=== PATIENT | female | born 1960 | race Caucasian/White ===

== ENCOUNTER 2017-11-16 19:59 | Emergency (ER) | payer OTHER ==
[~2017-11-16] VITALS: Ht 167.6 cm; Wt 49.9 kg
[~2017-11-16 19:59] MED LIST: ACET325 PO; ATOR20 PO; Acetaminophen-1 EAC1 PO; B/P MED; BELPTAB PO; CIPRO500 MG PO; CITA20 PO; CYCL10 PO; Coumadin4 MG PO; DIVA250EC PT; DIVA500EC PO; DULO30 PO; ESOM20 PO; FOLI1 PO; GABA300 PT; HYDACE10B PO; LISI20 PO; MIRT15 PO; OMEP20ER PO; Omeprazole20 M1; PHENY100ER PO; PROM25 PO; SENN187 PO; THIA100 PO
[2017-11-16 20:53] LABS: BASOPHILS ABSOLUTE AUTO 0.03 K/mm3 (0.00-0.23); BASOPHILS PERCENT AUTO 0 % (0-2); EOSINOPHILS ABSOLUTE AUTO 0.05 K/mm3 (0.00-0.68); EOSINOPHILS PERCENT AUTO 1 % (0-6); Hematocrit 38.3 % (33.0-51.0); IMMATURE GRAN ABSOLUTE AUTO 0.03 K/mm3 (0.00-0.10); IMMATURE GRAN PERCENT AUTO 0 % (0-1); LYMPHOCYTES ABSOLUTE AUTO 1.75 K/mm3 (0.84-5.20); LYMPHOCYTES PERCENT AUTO 16 % (21-46); MONOCYTES ABSOLUTE AUTO 0.43 K/mm3 (0.16-1.47); MONOCYTES PERCENT AUTO 4 % (4-13); Mean Corpuscular HGB 29.4 pg (26.0-34.0); Mean Corpuscular HGB Conc 31.3 g/dL (31.5-36.5); Mean Corpuscular Volume 94 fL (80-100); Mean Platelet Volume 10.2 fL (9.1-12.4); NEUTROPHILS ABSOLUTE AUTO 8.51 K/mm3 (1.96-9.15); NEUTROPHILS PERCENT AUTO 79 % (41-73); Platelet Count 366 K/mm3 (150-400); RDW Coefficient Variation 15.9 % (11.7-14.2); RDW Standard Deviation 54.5 fL (35.1-46.3); Red Blood Cell Count 4.08 M/mm3 (3.80-5.20)
[2017-11-16 21:14] LABS: Alanine Aminotransfer (ALT/SGP 7 U/L (12-78); Albumin, Blood 3.8 g/dL (3.4-5.0); Albumin/Globulin Ratio 0.7 (0.8-1.8); Alk Phos 85 U/L (50-136); Anion Gap 8 mmol/L (6-16); Aspartate Aminotrans (AST/SGOT 15 U/L (12-37); Bilirubin, Total 0.4 mg/dL (0.1-1.0); Blood Urea Nitrogen 24 mg/dL (8-24); Bun/Creatinine Ratio 50.8 (12.0-20.0); CO2, Blood 36 mmol/L (21-32); Calcium, Blood 9.7 mg/dL (8.5-10.1); Chloride, Blood 92 mmol/L (98-108); Creatinine, Blood 0.47 mg/dL (0.40-1.00); Globulin, Blood 5.5 g/dL (2.2-4.0); Glomerular Filtration Rate >60 (60-); Glucose, Blood 130 mg/dL (70-99); Potassium, Blood 3.1 mmol/L (3.5-5.5); Sodium, Blood 136 mmol/L (136-145); Total Protein, Blood 9.3 g/dL (6.4-8.2)
[2017-11-16 22:27] LABS: Troponin I <0.015 ng/mL (0.000-0.040)
[2017-11-16 22:42] LABS: Bilirubin, Direct 0.1 mg/dL (0.0-0.3); Bilirubin, Indirect 0.3 mg/dL (0.1-0.7)
[2017-11-16 22:48] LABS: International Normalized Ratio 0.99; Prothrombin Time Results 10.3 Sec (9.7-11.5)
[2017-12-31] MEDS ORDERED: Diflucan100 MG PT (13:32)
== END 2017-11-17 00:43 | disposition short-term general hospital (02) ==
LOC: ER 19:59
PROVIDERS: Emergency Medicine
DX: K92.2 Gastrointestinal hemorrhage, unspecified (principal); E87.6 Hypokalemia; Z91.030 Bee allergy status; Z79.899 Other long term (current) drug therapy; G40.909 Epilepsy, unspecified, not intractable, without status epilepticus; F17.210 Nicotine dependence, cigarettes, uncomplicated
CPT/HCPCS: 36415; 74022; 80053; 82248; 83690; 84484; 85025; 85610; 85730; 86850; 86900; 86901; 93005; 93010; 96365; 96367; 96375; 96376; 99285; C9113; J1170; J2405; J7030

== ENCOUNTER → 2017-11-29 | Outpatient (CLI) | payer OTHER ==
[~2017-11-29] MED LIST changes: +ALBU90OI INH; +AZIT200SU PO; +Bactrim Ds Tab1 EACH PT; +CEFD300 PT; +DIPH12.5EL PT; +Diflucan100 MG PT; +FENT50TP TOP; +Flagyl500 MG PT; +GAS RELIEF; +GAVILAX17 GM PT; +GLYC2 PT; +IBUP100S PT; +LEVFLO500 PT; +Methadone10 MG/5 ML PT; +Morphine S10 MG/5 ML PT; +NICO21TP TOP; +ONDA4ODT PO; +OXYC1L PT; +OXYC5 PT; +OXYCODONE10 MG/0.5 PO; +Oxycodone HCl20 M1 PO; +Potassium20 MEQ/11 PO; +RANI150EL PT; +SMZ/TMP; +Tylenol Su160 MG/5 M PT; +VALP250S60 PT; +Xylocaine 2% In20 ML PO
[2017-11-29 15:59] LABS: BASOPHILS ABSOLUTE AUTO 0.01 K/mm3 (0.00-0.23); BASOPHILS PERCENT AUTO 0 % (0-2); EOSINOPHILS ABSOLUTE AUTO 0.06 K/mm3 (0.00-0.68); EOSINOPHILS PERCENT AUTO 1 % (0-6); Hematocrit 29.9 % (33.0-51.0); Hemoglobin 9.8 g/dL (11.5-16.0); IMMATURE GRAN ABSOLUTE AUTO 0.03 K/mm3 (0.00-0.10); IMMATURE GRAN PERCENT AUTO 0 % (0-1); LYMPHOCYTES ABSOLUTE AUTO 1.24 K/mm3 (0.84-5.20); LYMPHOCYTES PERCENT AUTO 10 % (21-46); MONOCYTES ABSOLUTE AUTO 0.65 K/mm3 (0.16-1.47); MONOCYTES PERCENT AUTO 5 % (4-13); Mean Corpuscular HGB 30.5 pg (26.0-34.0); Mean Corpuscular HGB Conc 32.8 g/dL (31.5-36.5); Mean Corpuscular Volume 93 fL (80-100); Mean Platelet Volume 10.2 fL (9.1-12.4); NEUTROPHILS ABSOLUTE AUTO 10.95 K/mm3 (1.96-9.15); NEUTROPHILS PERCENT AUTO 85 % (41-73); Platelet Count 284 K/mm3 (150-400); RDW Coefficient Variation 15.1 % (11.7-14.2); RDW Standard Deviation 51.5 fL (35.1-46.3); Red Blood Cell Count 3.21 M/mm3 (3.80-5.20); White Blood Cell Count 12.94 K/mm3 (4.00-11.30)
[2017-11-29 16:06] LABS: Alanine Aminotransfer (ALT/SGP 9 U/L (12-78); Albumin, Blood 2.9 g/dL (3.4-5.0); Albumin/Globulin Ratio 0.8 (0.8-1.8); Alk Phos 61 U/L (40-126); Anion Gap 8 mmol/L (6-16); Aspartate Aminotrans (AST/SGOT 12 U/L (12-37); Bilirubin, Total 0.2 mg/dL (0.1-1.0); Blood Urea Nitrogen 13 mg/dL (8-24); Bun/Creatinine Ratio 37.1 (12.0-20.0); CO2, Blood 29 mmol/L (21-32); Calcium, Blood 8.9 mg/dL (8.5-10.1); Chloride, Blood 98 mmol/L (98-108); Creatinine, Blood 0.35 mg/dL (0.40-1.00); Globulin, Blood 3.8 g/dL (2.2-4.0); Glomerular Filtration Rate >60 (60-); Glucose, Blood 115 mg/dL (70-99); Potassium, Blood 3.8 mmol/L (3.5-5.5); Sodium, Blood 135 mmol/L (136-145); Total Protein, Blood 6.7 g/dL (6.4-8.2)
== END | disposition home or self-care (01) ==
LOC: LAB EV 15:51
PROVIDERS: Physician Assistant Medical
DX: R06.00 Dyspnea, unspecified (principal)
CPT/HCPCS: 80053; 85025; 85379

== ENCOUNTER 2017-12-10 20:38 | Inpatient (IN) | payer OTHER ==
[~2017-12-10] VITALS: Ht 162.6 cm; Wt 53.8 kg
[~2017-12-10 20:38] MED LIST changes: -ALBU90OI INH; -AZIT200SU PO; -Bactrim Ds Tab1 EACH PT; -CEFD300 PT; -DIPH12.5EL PT; -Diflucan100 MG PT; -FENT50TP TOP; -Flagyl500 MG PT; -GAS RELIEF; -GAVILAX17 GM PT; -GLYC2 PT; -IBUP100S PT; -LEVFLO500 PT; -Methadone10 MG/5 ML PT; -Morphine S10 MG/5 ML PT; -NICO21TP TOP; -ONDA4ODT PO; -OXYC1L PT; -OXYC5 PT; -OXYCODONE10 MG/0.5 PO; -Oxycodone HCl20 M1 PO; -Potassium20 MEQ/11 PO; -RANI150EL PT; -SMZ/TMP; -Tylenol Su160 MG/5 M PT; -VALP250S60 PT; -Xylocaine 2% In20 ML PO
[2017-12-10 21:09] LABS: BASOPHILS ABSOLUTE AUTO 0.02 K/mm3 (0.00-0.23); BASOPHILS PERCENT AUTO 0 % (0-2); EOSINOPHILS PERCENT AUTO 0 % (0-6); Hematocrit 35.2 % (33.0-51.0); Hemoglobin 11.2 g/dL (11.5-16.0); IMMATURE GRAN ABSOLUTE AUTO 0.04 K/mm3 (0.00-0.10); IMMATURE GRAN PERCENT AUTO 0 % (0-1); LYMPHOCYTES ABSOLUTE AUTO 0.54 K/mm3 (0.84-5.20); LYMPHOCYTES PERCENT AUTO 4 % (21-46); MONOCYTES ABSOLUTE AUTO 0.53 K/mm3 (0.16-1.47); MONOCYTES PERCENT AUTO 4 % (4-13); Mean Corpuscular HGB 29.9 pg (26.0-34.0); Mean Corpuscular HGB Conc 31.8 g/dL (31.5-36.5); Mean Corpuscular Volume 94 fL (80-100); Mean Platelet Volume 9.4 fL (9.1-12.4); NEUTROPHILS ABSOLUTE AUTO 13.01 K/mm3 (1.96-9.15); NEUTROPHILS PERCENT AUTO 92 % (41-73); Platelet Count 234 K/mm3 (150-400); RDW Coefficient Variation 14.8 % (11.7-14.2); RDW Standard Deviation 50.4 fL (35.1-46.3); Red Blood Cell Count 3.75 M/mm3 (3.80-5.20); White Blood Cell Count 14.14 K/mm3 (4.00-11.30)
[2017-12-10 21:23] LABS: International Normalized Ratio 0.96
[2017-12-10 21:29] LABS: Alanine Aminotransfer (ALT/SGP 7 U/L (12-78); Albumin/Globulin Ratio 0.7 (0.8-1.8); Alk Phos 87 U/L (50-136); Anion Gap 13 mmol/L (6-16); Aspartate Aminotrans (AST/SGOT 13 U/L (12-37); Bilirubin, Total 0.2 mg/dL (0.1-1.0); Blood Urea Nitrogen 21 mg/dL (8-24); Bun/Creatinine Ratio 21.5 (12.0-20.0); CO2, Blood 26 mmol/L (21-32); Chloride, Blood 98 mmol/L (98-108); Creatinine, Blood 0.98 mg/dL (0.40-1.00); Ethanol (Alcohol), Blood, Med <3 mg/dL; Globulin, Blood 4.3 g/dL (2.2-4.0); Glomerular Filtration Rate >60 (60-); Glucose, Blood 123 mg/dL (70-99); Potassium, Blood 3.8 mmol/L (3.5-5.5); Sodium, Blood 137 mmol/L (136-145); Total Protein, Blood 7.3 g/dL (6.4-8.2)
[2017-12-11 00:09] LABS: BASOPHILS ABSOLUTE AUTO 0.02 K/mm3 (0.00-0.23); BASOPHILS PERCENT AUTO 0 % (0-2); EOSINOPHILS ABSOLUTE AUTO 0.01 K/mm3 (0.00-0.68); EOSINOPHILS PERCENT AUTO 0 % (0-6); Hematocrit 31.9 % (33.0-51.0); IMMATURE GRAN ABSOLUTE AUTO 0.04 K/mm3 (0.00-0.10); IMMATURE GRAN PERCENT AUTO 0 % (0-1); LYMPHOCYTES PERCENT AUTO 6 % (21-46); MONOCYTES ABSOLUTE AUTO 0.53 K/mm3 (0.16-1.47); MONOCYTES PERCENT AUTO 4 % (4-13); Mean Corpuscular HGB 29.3 pg (26.0-34.0); Mean Corpuscular HGB Conc 31.3 g/dL (31.5-36.5); Mean Corpuscular Volume 94 fL (80-100); Mean Platelet Volume 9.3 fL (9.1-12.4); NEUTROPHILS ABSOLUTE AUTO 13.06 K/mm3 (1.96-9.15); NEUTROPHILS PERCENT AUTO 90 % (41-73); Platelet Count 221 K/mm3 (150-400); RDW Coefficient Variation 14.8 % (11.7-14.2); RDW Standard Deviation 50.5 fL (35.1-46.3); Red Blood Cell Count 3.41 M/mm3 (3.80-5.20); White Blood Cell Count 14.46 K/mm3 (4.00-11.30)
[2017-12-11] MEDS ORDERED: OXYC1L PT (03:45)
[2017-12-11] MEDS ORDERED: GLYC2 PT (03:47)
[2017-12-11] MEDS ORDERED: DIPH12.5EL PT (03:48)
[2017-12-11 05:58] LABS: BASOPHILS ABSOLUTE AUTO 0.01 K/mm3 (0.00-0.23); BASOPHILS PERCENT AUTO 0 % (0-2); EOSINOPHILS ABSOLUTE AUTO 0.03 K/mm3 (0.00-0.68); EOSINOPHILS PERCENT AUTO 0 % (0-6); Hematocrit 32.5 % (33.0-51.0); Hemoglobin 10.6 g/dL (11.5-16.0); IMMATURE GRAN ABSOLUTE AUTO 0.03 K/mm3 (0.00-0.10); IMMATURE GRAN PERCENT AUTO 0 % (0-1); LYMPHOCYTES ABSOLUTE AUTO 1.06 K/mm3 (0.84-5.20); LYMPHOCYTES PERCENT AUTO 11 % (21-46); MONOCYTES ABSOLUTE AUTO 0.65 K/mm3 (0.16-1.47); MONOCYTES PERCENT AUTO 6 % (4-13); Mean Corpuscular HGB Conc 32.6 g/dL (31.5-36.5); Mean Corpuscular Volume 92 fL (80-100); NEUTROPHILS ABSOLUTE AUTO 8.36 K/mm3 (1.96-9.15); NEUTROPHILS PERCENT AUTO 82 % (41-73); RDW Standard Deviation 49.7 fL (35.1-46.3); Red Blood Cell Count 3.53 M/mm3 (3.80-5.20); White Blood Cell Count 10.14 K/mm3 (4.00-11.30)
[2017-12-11 06:17] LABS: Alanine Aminotransfer (ALT/SGP 6 U/L (12-78); Albumin, Blood 2.4 g/dL (3.4-5.0); Albumin/Globulin Ratio 0.7 (0.8-1.8); Alk Phos 73 U/L (50-136); Anion Gap 10 mmol/L (6-16); Aspartate Aminotrans (AST/SGOT 12 U/L (12-37); Bilirubin, Total 0.1 mg/dL (0.1-1.0); Blood Urea Nitrogen 14 mg/dL (8-24); Bun/Creatinine Ratio 22.3 (12.0-20.0); CO2, Blood 29 mmol/L (21-32); Calcium, Blood 8.1 mg/dL (8.5-10.1); Chloride, Blood 104 mmol/L (98-108); Creatinine, Blood 0.63 mg/dL (0.40-1.00); Globulin, Blood 3.6 g/dL (2.2-4.0); Glomerular Filtration Rate >60 (60-); Glucose, Blood 95 mg/dL (70-99); Sodium, Blood 143 mmol/L (136-145)
[2017-12-11 06:22] LABS: Mean Platelet Volume 10.6 fL (9.1-12.4)
[2017-12-11 06:47] LABS: Platelet Count 113 K/mm3 (150-400)
[2017-12-11] MEDS ORDERED: FENT50TP TOP ×2 (08:48→10:23)
[2017-12-11] MEDS ORDERED: Bactrim Ds Tab1 EACH PT (09:35)
[2017-12-11] MEDS ORDERED: Tylenol Su160 MG/5 M PT (09:37)
[2017-12-11] MEDS ORDERED: VALP250S60 PT (09:38)
[2017-12-11] MEDS ORDERED: ONDA4ODT PO (09:39)
[2017-12-11 10:03] LABS: Hematocrit 28.2 % (33.0-51.0); Hemoglobin 8.9 g/dL (11.5-16.0)
[2017-12-11] MEDS ORDERED: ALBU90OI INH (10:11)
[2017-12-11] MEDS ORDERED: OXYCODONE10 MG/0.5 PO (10:11)
[2017-12-11] MEDS ORDERED: GAVILAX17 GM PT (10:11)
[2017-12-11] MEDS ORDERED: Potassium20 MEQ/11 PO (10:13)
[2017-12-11] MEDS ORDERED: Morphine S10 MG/5 ML PT (10:14)
[2017-12-11] MEDS ORDERED: NICO21TP TOP (10:14)
[2017-12-11] MEDS ORDERED: RANI150EL PT (10:17)
[2017-12-11] MEDS ORDERED: GAS RELIEF (10:17)
[2017-12-11] MEDS ORDERED: OXYC5 PT (10:18)
[2017-12-11] MEDS ORDERED: SMZ/TMP (10:19)
[2017-12-11] MEDS ORDERED: IBUP100S PT (10:19)
[2017-12-11] MEDS ORDERED: Oxycodone HCl20 M1 PO (10:20)
[2017-12-11] MEDS ORDERED: Methadone10 MG/5 ML PT (10:21)
[2017-12-11] MEDS ORDERED: LEVFLO500 PT (10:22)
[2017-12-11] MEDS ORDERED: Xylocaine 2% In20 ML PO (10:25)
[2017-12-11 16:06] LABS: Hematocrit 27.4 % (33.0-51.0); Hemoglobin 8.7 g/dL (11.5-16.0)
[2017-12-11 21:49] LABS: Hematocrit 26.6 % (33.0-51.0); Hemoglobin 8.4 g/dL (11.5-16.0)
[2017-12-12 04:39] LABS: Hematocrit 25.9 % (33.0-51.0); Hemoglobin 8.2 g/dL (11.5-16.0); Mean Corpuscular HGB 30.1 pg (26.0-34.0); Mean Corpuscular HGB Conc 31.7 g/dL (31.5-36.5); Mean Platelet Volume 9.3 fL (9.1-12.4); Platelet Count 180 K/mm3 (150-400); RDW Coefficient Variation 15.5 % (11.7-14.2); RDW Standard Deviation 53.9 fL (35.1-46.3); Red Blood Cell Count 2.72 M/mm3 (3.80-5.20); White Blood Cell Count 7.36 K/mm3 (4.00-11.30)
[2017-12-12 04:40] LABS: Mean Corpuscular Volume 95 fL (80-100)
[2017-12-12 04:54] LABS: Anion Gap 8 mmol/L (6-16); Blood Urea Nitrogen 9 mg/dL (8-24); Bun/Creatinine Ratio 26.8 (12.0-20.0); CO2, Blood 32 mmol/L (21-32); Calcium, Blood 7.9 mg/dL (8.5-10.1); Chloride, Blood 104 mmol/L (98-108); Creatinine, Blood 0.34 mg/dL (0.40-1.00); Glomerular Filtration Rate >60 (60-); Glucose, Blood 98 mg/dL (70-99); Magnesium, Blood 1.7 mg/dL (1.6-2.4); Phosphorus, Blood 2.4 mg/dL (2.5-4.9); Potassium, Blood 2.9 mmol/L (3.5-5.5); Sodium, Blood 144 mmol/L (136-145)
[2017-12-12 11:46] LABS: Hematocrit 26.3 % (33.0-51.0); Hemoglobin 8.3 g/dL (11.5-16.0)
[2017-12-12 17:52] LABS: Phosphorus, Blood 3.4 mg/dL (2.5-4.9)
[2017-12-31] MEDS ORDERED: Diflucan100 MG PT (13:32)
== END 2017-12-12 20:15 | disposition home or self-care (01) | DRG 368 ==
LOC: ER 20:38 → PCU 20:39
PROVIDERS: Emergency Medicine; Family Medicine; Internal Medicine
PROC: 3E0234Z Introduction of Serum, Toxoid and Vaccine into Muscle, Percutaneous Approach (ICD-10-PCS; principal; 2017-12-12)
DX: K22.6 Gastro-esophageal laceration-hemorrhage syndrome (principal); E43 Unspecified severe protein-calorie malnutrition; C79.89 Secondary malignant neoplasm of other specified sites; D62 Acute posthemorrhagic anemia; D68.2 Hereditary deficiency of other clotting factors; Z23 Encounter for immunization; Z66 Do not resuscitate; G40.909 Epilepsy, unspecified, not intractable, without status epilepticus; Z93.1 Gastrostomy status; G89.3 Neoplasm related pain (acute) (chronic); C80.1 Malignant (primary) neoplasm, unspecified
CPT/HCPCS: 36415; 71045; 74018; 80048; 80053; 83605; 83735; 84100; 84132; 85014; 85018; 85025; 85027; 85610; 85730; 86850; 86900; 86901; 87040; 87070; 87077; 87186; 87205; 93005; 93010; 93971; 94640; 94760; 96361; 96365; 96366; 96374; 96375; 96376; 99285; C1751; C9113; G0378; G0480; J2405; J3010; J7030; J7060

== ENCOUNTER 2018-01-19 14:22 | Emergency (ER) | payer OTHER ==
[~2018-01-19] VITALS: Ht 165.1 cm; Wt 49.9 kg
[~2018-01-19 14:22] MED LIST changes: +ALBU90OI INH; +Bactrim Ds Tab1 EACH PT; +DIPH12.5EL PT; +Diflucan100 MG PT; +FENT50TP TOP; +GAS RELIEF; +GAVILAX17 GM PT; +GLYC2 PT; +IBUP100S PT; +LEVFLO500 PT; +Methadone10 MG/5 ML PT; +Morphine S10 MG/5 ML PT; +NICO21TP TOP; +ONDA4ODT PO; +OXYC1L PT; +OXYC5 PT; +OXYCODONE10 MG/0.5 PO; +Oxycodone HCl20 M1 PO; +Potassium20 MEQ/11 PO; +RANI150EL PT; +SMZ/TMP; +Tylenol Su160 MG/5 M PT; +VALP250S60 PT; +Xylocaine 2% In20 ML PO
[2018-01-19] MEDS ORDERED: AZIT200SU PO (15:13)
[2018-01-19] MEDS ORDERED: CEFD300 PT (15:13)
[2018-01-19 15:29] LABS: Hematocrit 25.7 % (33.0-51.0); Hemoglobin 8.4 g/dL (11.5-16.0); Mean Corpuscular HGB 31.2 pg (26.0-34.0); Mean Corpuscular HGB Conc 32.7 g/dL (31.5-36.5); Mean Corpuscular Volume 96 fL (80-100); Mean Platelet Volume 10.8 fL (9.1-12.4); Platelet Count 92 K/mm3 (150-400); RDW Coefficient Variation 18.5 % (11.7-14.2); RDW Standard Deviation 64.6 fL (35.1-46.3); Red Blood Cell Count 2.69 M/mm3 (3.80-5.20); White Blood Cell Count 2.68 K/mm3 (4.00-11.30)
[2018-01-19 15:45] LABS: Alanine Aminotransfer (ALT/SGP 7 U/L (12-78); Albumin, Blood 3.5 g/dL (3.4-5.0); Alk Phos 71 U/L (50-136); Anion Gap 8 mmol/L (6-16); Aspartate Aminotrans (AST/SGOT 15 U/L (12-37); Bilirubin, Total 0.2 mg/dL (0.1-1.0); Blood Urea Nitrogen 13 mg/dL (8-24); Bun/Creatinine Ratio 21.1 (12.0-20.0); CO2, Blood 31 mmol/L (21-32); Calcium, Blood 8.7 mg/dL (8.5-10.1); Chloride, Blood 97 mmol/L (98-108); Creatinine, Blood 0.62 mg/dL (0.40-1.00); Globulin, Blood 3.4 g/dL (2.2-4.0); Glomerular Filtration Rate >60 (60-); Glucose, Blood 77 mg/dL (70-99); Potassium, Blood 3.6 mmol/L (3.5-5.5); Sodium, Blood 136 mmol/L (136-145); Total Protein, Blood 6.9 g/dL (6.4-8.2)
[2018-01-19 16:02] LABS: BASOPHILS PERCENT MAN 0 % (0-2); EOSINOPHILS PERCENT MAN 0 % (0-6); LYMPHOCYTES ABSOLUTE MAN 0.96 K/mm3 (0.84-5.20); LYMPHOCYTES PERCENT MAN 36 % (21-46); MONOCYTES PERCENT MAN 4 % (4-13); SEG NEUTROPHILS PERCENT MAN 60 % (41-73); TOTAL CELLS COUNTED 100
[2018-01-19] MEDS ORDERED: Flagyl500 MG PT (16:34)
== END 2018-01-19 17:55 | disposition home or self-care (01) ==
LOC: ER 14:22
PROVIDERS: Emergency Medicine
DX: L03.311 Cellulitis of abdominal wall (principal); K52.9 Noninfective gastroenteritis and colitis, unspecified; D64.9 Anemia, unspecified; I95.9 Hypotension, unspecified; Z91.030 Bee allergy status; Z88.8 Allergy status to other drugs, medicaments and biological substances; Z79.899 Other long term (current) drug therapy
CPT/HCPCS: 36415; 74176; 80053; 85025; 86850; 86900; 86901; 93005; 93010; J0690; J2405; J3010; J7030

== ENCOUNTER 2018-01-20 04:01 | Emergency (ER) | payer OTHER ==
[~2018-01-20] VITALS: Ht 165.1 cm; Wt 49.9 kg
[~2018-01-20 04:01] MED LIST changes: +AZIT200SU PO; +CEFD300 PT; +Flagyl500 MG PT
== END 2018-01-20 04:50 | disposition home or self-care (01) ==
LOC: ER 04:01
DX: K52.9 Noninfective gastroenteritis and colitis, unspecified (principal); G40.909 Epilepsy, unspecified, not intractable, without status epilepticus; F17.210 Nicotine dependence, cigarettes, uncomplicated; Z91.030 Bee allergy status; Z88.8 Allergy status to other drugs, medicaments and biological substances; Z79.899 Other long term (current) drug therapy; Z86.73 Personal history of transient ischemic attack (TIA), and cerebral infarction without residual deficits
CPT/HCPCS: 82272; 99282